=== PATIENT | male | born 1985 ===

== ENCOUNTER 2018-05-15 06:25 | Day surgery (SDC) | payer BC ==
[~2018-05-15 06:25] MED LIST: Buffered Lidocaine 1% SYRIN* 1 ML/SYRINGE INTRADERM ONE; Dexamethasone TAB* 4 MG PO ONE; DiMENhydriNATE IV* 50 MG/ML VIAL IV PUSH PRN; Famotidine IV* 10 MG/ML 2 ML (20 mg) IV ONE; Lactated Ringers 1000 ML Bag* 1,000 ML IV SCH; Morphine VIAL* 4 MG/ML VIAL (1 ml vial) IV PRN; Naloxone* 0.4 MG/ML 1 ML VIAL IV PRN; Ondansetron INJ* 2 MG/ML VIAL ONE; PROCHLORPERAZINE INJ 5 MG/ML 2 ML VIAL IV PRN; Scopolamine 1.5 mg* PATCH TRANSDERM PRN; fentaNYL* 50 MCG/ML 2 ML VIAL (100 MCG VIAL) IV PRN; oxyCODONE/Acetamin 5/325 MG* TAB PO PRN
[2018-05-15] MEDS ORDERED: Dexamethasone TAB* 4 MG ONE ×2 (06:36→11:48)
[2018-05-15] MEDS ORDERED: ceFAZolin 2 GM PREMIX in ORs 2 GM/50 ML BAG IVPB ONE ×2 (06:36→11:10)
[2018-05-15] MEDS ORDERED: Ondansetron ODT TAB* 4 MG ONE (06:36)
[2018-05-15] MEDS ORDERED: Famotidine IV* 10 MG/ML 2 ML (20 mg) ONE (06:37)
[2018-05-15] MEDS ORDERED: fentaNYL* 50 MCG/ML 5 ML VIAL (250 MCG VIAL) ONE (07:07)
[2018-05-15] MEDS ORDERED: Midazolam* 1 MG/ML 5 ML VIAL (5 MG) ONE (07:07)
[2018-05-15] MEDS ORDERED: Lidocaine 1% MPF wEPI 200,000* 30 ML SDV ONE ×2 (07:21→08:08)
[2018-05-15] MEDS ORDERED: Bupivacaine 0.25% SDV PF* 10 ML VIAL INJ ONE (07:21)
[2018-05-15] MEDS ORDERED: ceFAZolin 1 GM VIAL(*) ONE (07:47)
[2018-05-15] MEDS ORDERED: Morphine INJ* 10 MG/ML 1 ML CARPUJECT ONE (08:24)
[2018-05-15] MEDS ORDERED: Ketorolac INJ* 30 MG/ML 1 ML VIAL ONE (09:16)
[2018-05-15] MEDS ORDERED: Lidocaine 2% PF * 5 ML VIAL ONE (09:16)
[2018-05-15] MEDS ORDERED: Propofol* 10 MG/ML 20 ML BTL ONE (09:16)
[2018-05-15] MEDS ORDERED: ROPIVACAINE 5 MG/ML 30 ML BTL (0.5%) ONE (11:03)
[2018-05-15] MEDS ORDERED: PROCHLORPERAZINE INJ 5 MG/ML 2 ML VIAL ONE (11:57)
[2018-05-15] MEDS ORDERED: Scopolamine 1.5 mg* PATCH ONE (11:58)
[2018-05-15 13:29] VITALS: BP 158/92
--- NOTE | 2018-05-16 03:16 | OP ---
DATE OF OPERATION: 05/15/18 [facility] DATE OF : 87 SURGEON: Dr. Luca Pradhan. GENERAL OFFICE CLERK: RADHA Scott. An occupational therapy assistant was needed for the entirety of the case to help with positioning, retraction, and was utilized throughout all portions of the case. SECOND GENERAL OFFICE CLERK: Imani Kenney, she is an ASSISTANT TECHNICIAN student. ANESTHESIOLOGIST: Dr. Matthew. ANESTHESIA: General. PRE-OP DIAGNOSIS: Left knee grade 3 anterior cruciate ligament rupture. POST-OP DIAGNOSIS: Left knee grade 3 anterior cruciate ligament rupture with a lateral root of the meniscus complete tear. OPERATIVE PROCEDURE: 1. Left knee arthroscopy with partial lateral meniscectomy. 2. Repair of the posterolateral root of the meniscus through a separate incision and separate fixation. 3. ACL reconstruction using quad autograft. IMPLANTS USED: Two 4.5 Synthes cortical screws with washers and one Daily and Nephew 9 x 25 BioComposite screw. TOURNIQUET TIME: 23 minutes at 250 mmHg. INDICATIONS: Duarte Painter is a 32-year-old male, who works at [employer], who was playing basketball on 03/27/18, when he felt his knee buckle and landed on it. He had persistent pain and loss of motion. He was diagnosed with a left knee ACL rupture. After significant discussion of the risks and benefits of the surgery, he has elected to proceed. He is very active. He underwent preoperative rehabilitation to work on his range of motion. The risks and benefits were discussed at length and included, but not limited to bleeding, infection, damage to nerves; vessels; and surrounding structures, wound nonhealing, persistent pain, need for further surgery, scarring, stiffness , incomplete relief of symptoms, risks of anesthesia, blood clots, and failure of the repair. DESCRIPTION OF PROCEDURE: The patient was greeted in the preoperative area by the attending surgeon. Correct extremity was marked and consent was confirmed. The patient was brought back to the operating suite, where he was placed in the supine position on the operating table. He then underwent general anesthesia with LMA intubation, after which he was appropriately positioned in bed and lateral posts were positioned and being unable to place that to keep his knee at 90 degrees, a sterile tourniquet was placed after the leg was prepped and draped in the usual sterile fashion, beginning with chlorhexidine soap, scrub, and alcohol wipe and a final prep with ChloraPrep. After appropriate surgical pause indicating side, site, procedure, and administration of antibiotics, the knee was intra-articularly injected with 1% lidocaine with epi, after which an Esmarch was used to exsanguinate the limb. The tourniquet was set to 250 mmHg. Tourniquet time was 23 minutes. A midline incision over the distal quadriceps tendon was then made using a #15 blade. Soft tissues were carefully exposed to expose the quadriceps tendon, which appeared to be good quality, but had mild fatty tissue in it. Full-thickness flaps were then used and sized to allow for size 9 to 10 mm graft. A soft tissue block of approximately 7 cm was chosen. The bone block was then harvested using the sagittal saw. The bone quality was very, very hard and of very good quality. A size 9 x 23 bone block was then harvested. Once the graft was harvested, it was prepared on the back table by the occupational therapy assistant. The attending closed the quadriceps tendon and full-thickness flaps with 0-Vicryl in interrupted fashion. A lap was used to stem any leakage from the quadriceps incision. The tourniquet was deflated for a total time of 23 minutes and attention was directed to the arthroscopy. An anterolateral portal was made sharply with an 11 blade. The scope was then used into the joint. The anteromedial portal was made using an 18-gauge needle for localization in a similar fashion. Shaver was used to debride back the abundant bursa that was present. The ACL was found to be completely ruptured with a grade 3 rupture. There was obvious tension on the ligament of Martinez and as the ACL stump was debrided back, it was evident that there was some damage to the lateral meniscus posteriorly. The ACL stump was debrided back using biters and fan. The knee was then taken to full extension. There was mild chondrosis, a small area of grade 2 changes along the trochlea, but the patella had grade 0 to 1 changes. Medial and lateral gutters were intact without any loose debris. The medial compartment was intact with grade 0 changes and an intact medial meniscus. The knee was placed in a [id number] position. There was evidence of a small radial split tearing along the body of the meniscus. This was debrided back using biters and fan. The meniscus was further visualized and there was an obvious avulsion and tear of the root completely from its insertion. This needed to be repaired as this ruined the integrity to the lateral meniscus. At this point, attention was directed to the lateral root repair. The tibial guide was then placed at the posterolateral root insertion. The guide was then drilled and once we identified, a Daily and Nephew passing metal loop was then passed up through the tunnel for later capturing of sutures; #2 Ortho Braid suture was then passed using an Accu-Pass suture in a horizontal mattress configuration through the lateral meniscus. Once this was done, the sutures were carefully passed through the looped suture and protected through separate tunnels. At this point, the sutures were tagged and maintained and monitored throughout the entirety of the case. The knee was then placed in 90 degrees of flexion and a starting awl was used to tyler the provisional starting point for the femoral tunnel and was then checked by changing the scope from the lateral to the medial portal. After this was done, attention was directed to the tibial tunnel and the tibial guide was placed at about 55 degrees and care was taken to not intersect with the previously drilled root of the meniscus tunnel. The incision was then widened to allow for accommodation for the tibial tunnel. Once the appropriate guidewire was placed in the appropriate position, it was then overdrilled with the size 9 mm full-bore reamer. All excess bone and debris was saved for bone graft to the patellar defect. At this point, the tunnel was found to be in good position, and the shaver and the rasp were then used to rasp the tunnel. The knee was then placed in hyperflexion and then the Daily and Nephew guide placed in the center of the femoral footprint. The Beath pin was then advanced through the lateral condyle. The bone quality was very hard in this lateral femoral condyle. Once this was found to be in the optimal position, a size 9 mm low profile reamer was used to drill to a depth of about 22 mm. Again, the bone quality was very poor beginning at around 10 mm from the beginning. The tunnel was then carefully notched and visualized. All excess bone and debris was removed. A #2 Ethibond suture was then placed through the eyelet of the Beath pin and advanced. At this point, attention was directed to graft placement. The graft which had been previously prepared by the occupational therapy assistant and had been placed on 15 pounds of tension was taken off the tension. It was then brought to the field and then passed. Once it was passed and stood securely in the tunnel, a nitinol wire was placed as per the usual fashion and then the 7 x 20 mm screw was then chosen. The soft tissue protector was then used to help pass. The screw was able to pass till about 10 mm and then started to debride the bone from the bone block. It was likely because the bone quality of the femoral condyle was so hard. An attempt to try to pass this again in a different fashion happened and because there were concerns of possible damage to the graft, this was aborted. The graft was then attempted to be taken out of the tunnel, but could not be removed it as it was very well fit and the decision was made to use suspensory fixation to fix this over the femur. Therefore, a lateral incision over the IT band was then made through the soft tissues. The soft tissues were carefully exposed to expose the IT band, which was then incised in line with the fibers. The vastus lateralis and the soft tissues were elevated with care not to destroy any of the musculature. The lateral aspect of the femoral condyle was exposed. Once this was done, the Proterro 3.2 drill bit was used to drill bicortically and the appropriate-sized screw plus 4 mm was then placed. A washer post was then placed and the sutures were passed around this and then tied down. Once this was done, the post was secured. At this point, the scope was brought back to the joint and the graft was found to be well positioned. The knee was then cycled approximately 5 times to remove any stress and creep from the graft; there was no evidence of tearing or rupturing of the tendon. The graft was in good position. At this point, the scope was brought back to the joint. The joint was visualized and the knee was placed in full extension. There was no evidence of impingement. All bone and debris was removed. The knee was then placed in about 20 degrees of flexion with a bump under the knee, tension on the tibial sutures. A nitinol wire was placed and the 9 x 25 mm screw was placed with excellent purchase. The knee was then taken through a full range of motion. Pratik's was assessed and found to be stable. Because the patient had a previous root of the meniscus tear as well as suspensory fixation on the femoral side, the decision was made to do suspensory fixation of the tibial graft even though it appeared to be well secured as it would also encompass the lateral meniscus root repair. Therefore, the 3.2 drill bit was drilled again bicortically. The appropriate length 4.5 nonlocking screw was then placed with a washer post. The sutures were then passed under the washer and tied down, first beginning with the ACL with tension on the sutures and then the knee was placed in gentle flexion and with the scope brought back into the joint to ensure appropriate tension. This was then tied down and the screw was advanced for compression. Final images were obtained. Pratik's was assessed again and found to be stable. The wounds were copiously irrigated with sterile saline. The IT band laterally was closed with 0-Vicryl in interrupted fashion and then the skin was closed with 3-0 Monocryl in an interrupted and then a running fashion. The portals were closed with 3-0 nylon. The patellar defect was then filled with bone graft and then oversewn with 0-Vicryl. The skin was closed with 3-0 nylon and promise. The tibial wound was closed with 3-0 Monocryl in an interrupted and then a running fashion. The wounds were then injected with 0.2% ropivacaine. The wounds were copiously irrigated with sterile saline. Sterile dressing was applied, Cryo/Cuff and a hinged knee brace, range of motion 0 to 70 degrees. He was awoken from anesthesia and transferred to PACU in stable condition. POSTOPERATIVE PLAN: He will be nonweightbearing for 4 weeks. He will be range of motion 0 to 70 degrees. He will be discharged on pain medications. DVT prophylaxis will be considered, but deferred due to no previous personal or family history. I will see the patient back in about 6 to 8 days. [id number]/[facility] #: [id number] [id number]
[2018-05-18] MEDS ORDERED: Scopolamine PATCH Remove* 1 NOTE MISC PATCH OFF ONE (05:24)
== END 2018-05-15 13:21 | disposition home or self-care (01) ==
LOC: OREAST 06:25
PROVIDERS: ATTEND Orthopaedic Surgery
DX: S83.512A Sprain of anterior cruciate ligament of left knee, initial encounter (principal); S83.282A Other tear of lateral meniscus, current injury, left knee, initial encounter; X50.0XXA Overexertion from strenuous movement or load, initial encounter; Y93.67 Activity, basketball; Y92.310 Basketball court as the place of occurrence of the external cause
CPT/HCPCS: A9270-GY; C1713; C1776; J0690; J0780; J1885; J2001; J2250; J2270; J2704; J2795; J3010; J3490; J8540